=== PATIENT | female | born 1950 | race Caucasian/White ===

== ENCOUNTER → 2018-05-11 | Day surgery (SDC) | payer MEDICARE ==
[2018-05-10 12:38] VITALS: BMI 21.0
[~2018-05-11] MED LIST: Cyclopentolate 1% Opth Drop 2 ML BOT FS SCH; Cyclopentolate 1% Opth Drop 2 ML BOT ONE; Fentanyl 100 MCG/2 ML VIAL ONE; Fluorouracil 100 MG, Enoxaparin Sodium 25 MG, EPINEPHrine 0.3 MG in Ophthalmic Irrigati... IVPB SCH; Lidocaine 1% PF 5 ML VIAL ONE; Lidocaine 2% 10 ML INJ ONE; Midazolam HCl 2 mg/2 ml Vial ONE; PROPOFOL 20 ML ONE; PROPOFOL 200 MG/20 ML VIAL ONE; Phenylephrine 2.5% Ophth Soln 5 ML BOT FS SCH; Phenylephrine 2.5% Ophth Soln 5 ML BOT ONE
--- NOTE | 2018-05-11 12:22 | OP ---
DATE OF SURGERY: 05/11/2018 PREOPERATIVE DIAGNOSIS: Rhegmatogenous retinal detachment, right eye. POSTOPERATIVE DIAGNOSIS: Rhegmatogenous retinal detachment, right eye. PROCEDURE: Pars plana vitrectomy and retinal detachment repair, right eye. SURGEON: Yahir Horton M.D. ANESTHESIA: Local with monitored anesthesia care. COMPLICATIONS: None. PROCEDURE IN DETAIL: The patient was identified in the preoperative holding area. Appropriate infor med consent for the planned surgical procedure on the right eye had been obtained. The patient was t ransferred to the operative suite where appropriate cardiopulmonary monitoring established. Local an esthesia obtained using retrobulbar and modified Van Lint lid block using 50/50 mixture of 4% lidocai ne and 0.75% bupivacaine. The patient was prepped and draped in the usual sterile manner for ophthal rajinder surgery on the right eye. Lid speculum was placed in the right eye. The 25-gauge trocars were p laced in conjunctiva. Slit sclera supratemporally, inferotemporally, and supranasally. Infusion dalton e was placed inferotemporally. Light pipe and vitreous cutter were inserted into the eye. Core vitr ectomy was performed. Attention was turned to the superior tear. Vitreous traction was removed from the tear and it was marked with endocautery. Posterior drain retinotomy was created. Complete air fluid exchange was performed with 10 minutes being allowed for fluid to drain posteriorly. A 360 las er was placed using endolaser delivery device. A 28% sulfur hexafluoride gas was infused into the ey e. Trocars were removed. Supratemporal supranasal sclerotomies were sutured closed. Eye was noted to retain pressure well. Retrobulbar Kenalog and subconjunctival Ancef were placed. Antibiotic oint ment was placed, and the eye was patched and shielded. The patient was taken to postop recovery unit in good condition having suffered no immediate perioperative complications. The patient was instruc blanco to keep patch and shield on, position right side down and follow up in the morning with Dr. Horton.
== END ==
LOC: SDC 09:32
PROVIDERS: ATTEND Ophthalmology Retina Specialist
PROC: 08T43ZZ Resection of Right Vitreous, Percutaneous Approach (ICD-10-PCS; principal; 2018-05-11)
PROC: 08QE3ZZ Repair Right Retina, Percutaneous Approach (ICD-10-PCS; 2018-05-11)
DX: H33.011 Retinal detachment with single break, right eye (principal); Z79.82 Long term (current) use of aspirin; Z79.899 Other long term (current) drug therapy
CPT/HCPCS: 67025; J0171; J1650; J2001; J2250; J2704; J3010; J9190